=== PATIENT | male | born 1950 | race Caucasian/White ===

== ENCOUNTER 2017-10-20 12:45 | Inpatient (IN) | payer OTHER ==
[~2017-10-20] VITALS: Ht 176.5 cm; Wt 64.1 kg
[2017-10-27] MEDS ORDERED: SODIUM CHLORID 0.9% 500 ML IV PRN (09:45)
[2017-10-27] MEDS ORDERED: POVIDONE IODINE 5% (ANTISEPSIS KIT) 4 APPLICATIONS EACH NARE PRN (09:45)
[2017-10-27] MEDS ORDERED: METOPROLOL TARTRATE 25 MG TAB PO PRN (09:45)
[2017-10-27] MEDS ORDERED: CHLORHEXIDINE GLUCONATE 2 % 1 PACK (2 CLOTHS) TOPICAL PRN (09:45)
[2017-10-27] MEDS ORDERED: LACTATED RINGER'S 1000 ML IV PRN (09:45)
[2017-10-27] MEDS ORDERED: ACETAMINOPHEN 1000 MG/100 ML 100 ML IV ONE (10:05)
[2017-10-27 10:24] LABS: BASOPHIL % 0.6 % (0.0-2.0); EOSINOPHIL # 0.1 TH/MM3 (0-0.4); EOSINOPHIL % 1.5 % (0.0-4.0); HEMATOCRIT 45.7 % (39.0-51.0); HEMOGLOBIN 15.6 GM/DL (13.0-17.0); LYMPH % 18.8 % (9.0-44.0); LYMPHOCYTE # 1.3 TH/MM3 (1.0-4.8); MEAN CELL VOLUME 93.3 FL (80.0-100.0); MEAN CORPUSCULAR HEMOGLOBIN 31.7 PG (27.0-34.0); MEAN PLATELET VOLUME 8.2 FL (7.0-11.0); MONO % 6.4 % (0.0-8.0); MONOCYTE # 0.4 TH/MM3 (0-0.9); NEUT % 72.7 % (16.0-70.0); PLATELET COUNT 242 TH/MM3 (150-450); RED CELL DISTRIBUTION WIDTH 12.8 % (11.6-17.2); WHITE BLOOD COUNT 6.8 TH/MM3 (4.0-11.0)
[2017-10-27] MEDS ORDERED: ceFAZolin INJ 1,000 MG VIAL ONE (10:30)
[2017-10-27] MEDS ORDERED: BUPIVACAINE/EPINEPHRINE 0.5% PF 10 ML VIAL ONE (10:30)
[2017-10-27 11:06] LABS: BICARBONATE 27.4 MEQ/L (21.0-32.0); CALCIUM 9.2 MG/DL (8.5-10.1); CREATININE 1.02 MG/DL (0.60-1.30)
--- NOTE | 2017-10-27 11:15 | RADRPT ---
EXAM DATE/TIME: 10/27/2017 10:13 [place] COMPARISON: No previous studies available for comparison. INDICATIONS : Evaluate for Pneumonia, Pneumothorax, and Communicable Diseases. Pre-op for inguinal hernia. MEDICAL HISTORY : None. SURGICAL HISTORY : None. ENCOUNTER: Initial ACUITY: 1 day PAIN SCORE: 0/10 LOCATION: Bilateral chest FINDINGS: A single view of the chest demonstrates the lungs to be symmetrically aerated without evidence of mas s, infiltrate or effusion. The cardiomediastinal contours are unremarkable. Osseous structures are intact. CONCLUSION: 1. No acute cardiopulmonary findings. Miguel Wagner MD on October 27, 2017 at 11:12 Board Certified Radiologist. This report was verified electronically.
[2017-10-27] MEDS ORDERED: LACTATED RINGER'S 1000 ML INJ 1,000 ML IV ONE (12:00)
[2017-10-27] MEDS ORDERED: LIDOCAINE HCL 1% PF 5 ML SYRINGE OTHER ONE (12:00)
[2017-10-27] MEDS ORDERED: PROPOFOL 200 MG/20 ML AMP IV ONE (12:00)
[2017-10-27] MEDS ORDERED: PERC5TAB12 PO (13:04)
[2017-10-27] MEDS ORDERED: MIDAZOLAM HCL 2 MG/2 ML VIAL ONE (13:13)
[2017-10-27] MEDS ORDERED: DO NOT ADM ANY ANTICOAGULANT DRUGS PRN (13:30)
--- NOTE | 2017-10-27 14:17 | MP ---
cc: Ora Aguilar MD DATE OF OPERATION: PREOPERATIVE DIAGNOSIS: Left inguinal hernia. POSTOPERATIVE DIAGNOSIS: Left inguinal hernia, left indirect and direct inguinal hernia. OPERATIVE PROCEDURE: Left inguinal hernia repair, Shouldice plus laying of a polypropylene patch. SURGEON: Dr. Aguilar. ANESTHESIA: General. ESTIMATED BLOOD LOSS: 15 mL PROCEDURE: The patient was prepped and draped in the usual fashion. The area infiltrated with 0.5% Marcaine with 22-gauge spinal needle in the form of an inguinal block. Incision made and deepened down through the layers to the Savannah's fascia, which is opened and then the external oblique aponeurosis is found. The external inguinal ring is detected. The area is more infiltrated with 1% Xylocaine and then incision made through the external oblique aponeurosis, which is opened in the direction of the fibers and straight hemostats placed on it. The tissues are dissected down to the inguinal shelving edge of the inguinal ligament. The cremaster muscle was now grasped with hemostats, opened and dissected away. Ilioinguinal nerve was carefully preserved superiorly. The cord was now freed up bluntly from the inguinal canal and placed on a [place]. Cord is now explored. The patient has an indirect hernia which reaches about 4 inches down into the cord. The sac is dissected very carefully from the cord and then deep into the internal inguinal ring. Sac is opened. Some omentum presented, this point is pushed back. The sac is now twisted, ligated with 2-0 Vicryl stick tie and then amputated the direct portion of the inguinal hernia is now attended, which is medial to the inferior epigastric artery and vein. The patient has a very weak inguinal canal and a transverse abdominis muscle is fairly elusive here. Therefore, the inferior epigastric artery and vein ligated and then the inguinal canal was opened to preperitoneal space by transecting longitudinal at the left over fiber some transverse abdominis muscle. Preperitoneal fat is swept away and indeed the patient has a very weak area here. Therefore, polypropylene small mesh is used, which is anchored with 2-0 Vicryl at the pubic tubercle and then the medial stitches run attaching the internal oblique muscle and remnants of the transverse abdominis muscle and transversalis fascia all the way behind the cord, where the mesh is split laterally. The mesh is sewn in with 2-0 Prolene into the shelving edge of the inguinal ligament and brought back behind the cord. Both stitches are tied to each other. Area irrigated with copious amounts of saline, once more infiltrated with Xylocaine and ilioinguinal nerve repositioned and then external oblique aponeurosis closed under the ilioinguinal nerve with running 2-0 Prolene. Savannah's fascia was closed with 2-0 Vicryl and skin was closed with 4-0 Monocryl and Benzoin and Steri-Strips applied. The patient tolerated the procedure well. MD ISAIAS Ramirez/LYNDSAY , 01:09 PM , 02:16 PM
[2017-10-27 14:25] VITALS: BP 134/79; PULSE 60; RESP 16; TEMP 97.9; O2SAT 97
--- NOTE | 2017-10-27 22:06 | EKG ---
Date Performed: 10/27/2017 Time Performed: 10:44:06 PTAGE: 67 years EKG: SINUS BRADYCARDIA SEPTAL MYOCARDIAL INFARCTION , OF INDETERMINATE AGE ABNORMAL ECG NO PREVIOUS TRACING DOCTOR: George Pantoja Interpretating Date/Time 10/27/2017 22:05:31
== END 2017-10-27 14:46 | disposition home or self-care (01) | DRG 352 ==
LOC: HSDI 10-27 09:11
PROVIDERS: ADMIT Surgery; ATTEND Surgery
PROC: 0YU60JZ Supplement Left Inguinal Region with Synthetic Substitute, Open Approach (ICD-10-PCS; principal; 2017-10-27 11:17)
DX: K40.90 Unilateral inguinal hernia, without obstruction or gangrene, not specified as recurrent (principal)
CPT/HCPCS: 71045; 80048; 85025; 93005; C1781; J0131; J0690; J2250; J3010; J7120

== ENCOUNTER 2017-10-28 12:20 | Emergency (ER) | payer OTHER ==
[~2017-10-28] VITALS: Ht 175.3 cm; Wt 70.0 kg
[~2017-10-28 12:20] MED LIST: PERC5TAB12 PO
[2017-10-28 12:27] VITALS: BP 170/95; PULSE 87; RESP 18; TEMP 98.3; O2SAT 99
--- NOTE | 2017-10-28 12:40 | PD ---
HPI Chief Complaint: Complaint Time Seen by Provider: 12:39 Travel History International Travel<30 days: No Contact w/Intl Traveler<30days: No Traveled to known affect area: No History of Present Illness HPI Per patient he gives a history of left hernia repair yesterday, and states that he has been unable to urinate since 11 PM last night. Patient feels the urge to go urinate however when he does go to the bathroom he is unable to actually produce any significant amount of urine. Patient presents approximately 12 hours after onset of decreased urine output. Patient complains of suprapubic pressure discomfort rated as a 7 out of 10, worse by palpation. No alleviating or aggravating factors. No associated factors such as fever, rash, nausea vomiting diarrhea, or any evidence of urinary or fecal incontinence. No known drug allergy Past medical history significant for internal defibrillator and pacemaker PFSH Past Surgical History AICD: No Joint Replacement: No Pacemaker: No Allergies-Medications (Allergen,Severity, Reaction): Coded Allergies: No Known Allergies (Unverified , 10/27/17) Reported Meds & Prescriptions Reported Meds & Active Scripts Active Percocet (Oxycodone-Acetaminophen) 5-325 mg Tab 1 Tab PO Q4H PRN Review of Systems General / Constitutional: No: Fever Eyes: No: Visual changes HENT: No: Headaches Cardiovascular: No: Chest Pain or Discomfort Respiratory: No: Shortness of Breath Gastrointestinal: No: Abdominal Pain Genitourinary: Positive: Decreased Urinary Output Musculoskeletal: No: Pain Skin: No Rash Neurologic: No: Weakness Psychiatric: No: Depression Endocrine: No: Polydipsia Hematologic/Lymphatic: No: Easy Bruising Data Data Last Documented VS Vital Signs Date Time Temp Pulse Resp B/P (MAP) Pulse Ox O2 Delivery O2 Flow Rate FiO2 10/28/17 12:27 98.3 87 18 170/95 (120) 99 Orders Orders Basic Metabolic Panel (Bmp) (10/28/17 12:46) Urinalysis - C+S If Indicated (10/28/17 12:46) Iv Access Insert/Monitor (10/28/17 12:46) Sodium Chlor 0.9% 1000 Ml Inj (Ns 1000 M (10/28/17 13:00) Labs Laboratory Tests Test 10/28/17 13:00 10/28/17 13:35 Blood Urea Nitrogen 17 MG/DL Creatinine 1.07 MG/DL Random Glucose 96 MG/DL Calcium Level 9.4 MG/DL Sodium Level 139 MEQ/L Potassium Level 3.6 MEQ/L Chloride Level 105 MEQ/L Carbon Dioxide Level 23.5 MEQ/L Anion Gap 11 MEQ/L Estimat Glomerular Filtration Rate 69 ML/MIN Urine Color LIGHT-YELLOW Urine Turbidity CLEAR Urine pH 6.5 Urine Specific [place] 1.010 Urine Protein NEG mg/dL Urine Glucose (UA) NEG mg/dL Urine Ketones NEG mg/dL Urine Occult Blood MOD Urine Nitrite NEG Urine Bilirubin NEG Urine Urobilinogen LESS THAN 2.0 MG/DL Urine Leukocyte Esterase NEG Urine RBC 12 /hpf Urine WBC 2 /hpf Urine Mucus FEW /lpf Microscopic Urinalysis Comment CULT NOT INDICATED MDM Medical Decision Making Medical Screen Exam Complete: Yes Emergency Medical Condition: Yes Medical Record Reviewed: Yes Differential Diagnosis Urinary retention versus UTI versus dehydration Narrative Course CBC shows normal GFR normal creatinine normal electrolytes and no evidence of any moderate or severe dehydration. UA does not show any evidence of a UTI Of particular note the patient had great relief of his suprapubic pain after placement of Christina which drained about 500 cc spontaneously and the first few seconds after placement. Patient will be discharged with leg bag Urinary retention was likely secondary to anesthesia Diagnosis Primary Impression: Urinary retention status post Christina placement Referrals: Ora Aguilar MD KEEP YOUR APPOINTMENT FOR FOLLOW UP. THE CHRISTINA MAY BE REMOVED AT THAT POINT. IF UNABLE TO KEEP FOLLOW UP YOU MAY RETURN TO ER TO REMOVE CHRISTINA. Patient Instructions: General Instructions, Urinary Retention in Men (DC) Additional Instructions: Please make a follow-up appointment with your surgeon and at that point they can remove the Christina. If you are unable to schedule a follow-up you can return on Wednesday to the ER to have your Christina removed Disposition: 01 DISCHARGE HOME Condition: Armand Hammer MD October 28, 2017 12:40
[2017-10-28] MEDS ORDERED: SODIUM CHLOR 0.9% 1000 ML INJ 1,000 ML IV ONE (13:00)
[2017-10-28 14:12] LABS: BILIRUBIN, URINE NEG (NEG); BLOOD, URINE MOD (NEG); GLUCOSE,URINE NEG (NEG); KETONE, URINE NEG (NEG); MUCUS URINE FEW /lpf (OCC); NITRITE,URINE NEG (NEG); PH, URINE 6.5 (5.0-8.5); URINE COLOR LIGHT-YELLOW (YELLW/STRAW); URINE LEUKOCYTE ESTERASE NEG (NEG)
[2017-10-28 14:20] LABS: BICARBONATE 23.5 MEQ/L (21.0-32.0); CALCIUM 9.4 MG/DL (8.5-10.1); CREATININE 1.07 MG/DL (0.60-1.30)
[2017-10-28 15:12] VITALS: BP 165/82
== END 2017-10-28 15:31 | disposition home or self-care (01) ==
LOC: NEPD 12:20
DX: R33.8 Other retention of urine (principal); Z98.890 Other specified postprocedural states; Z95.810 Presence of automatic (implantable) cardiac defibrillator; Z79.899 Other long term (current) drug therapy
CPT/HCPCS: 51702; 80048; 81001; 96360; 99284; J7030